=== PATIENT | male | born 1960 | race Caucasian/White ===

== ENCOUNTER 2017-04-04 15:27 | Emergency (ER) | payer OTHER ==
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
[2017-04-05 01:04] VITALS: BP 164/94
== END 2017-04-04 22:35 | disposition home or self-care (01) ==
LOC: ED 15:27
DX: S29.019A Strain of muscle and tendon of unspecified wall of thorax, initial encounter (principal); I10 Essential (primary) hypertension; V89.2XXA Person injured in unspecified motor-vehicle accident, traffic, initial encounter; Y93.89 Activity, other specified; Y99.8 Other external cause status; Y92.488 Other paved roadways as the place of occurrence of the external cause
CPT/HCPCS: 72072